=== PATIENT | male | born 1990 | race Caucasian/White ===

== ENCOUNTER 2016-07-05 00:41 | Emergency (ER) | payer OTHER ==
[~2016-07-05] VITALS: Ht 170.2 cm; Wt 92.4 kg
[~2016-07-05 00:41] MED LIST: IMTUNK; REVIEWED; TRVHP PO
[2016-07-05 00:46] VITALS: TEMP 36.9; Ht 170.2 cm; Wt 92.4 kg
--- NOTE | 2016-07-05 01:14 | EMERGENCY ROOM VISIT NOTE ---
History Report prepared by Jose: Carmelina Hart Under the Supervision of: Dr. Jolene Vergara D.O. First contact with patient: 00:54 Chief Complaint: MENTAL HEALTH EVALUATION Stated Complaint: [facility] History of Present Illness The patient is a 26 year old male who presents to the Emergency Room with complaints of suicidal attempt occurring [employer]. The patient states that tonight he wanted to kill himself and states he was going to drive off the road to attempt suicide. The patient states that he drove here tonight after drinking "too much alcohol." The patient states that he has suffered from depression throughout his life and also tried to commit suicide before by hanging himself a year and a half ago after being . The patient states that after his attempt he did not receive psychiatric treatment. The patient states that his thoughts of attempting suicide occurred tonight after due to several aspects of his life changing over the last year an a half including his divorce, feeling disconnected with his children and his girlfriend breaking up with him 2 days ago. The patient states that he had been dating his girlfriend for the past 7 months and that she was the best thing that ever happened to him. The patient states the he has seen a psychiatrist in the past but has never been treated at an [facility]. The patient denies sustaining any injuries tonight or taking any medications tonight. Source of History: patient Onset: [employer] Position: other (global) Note: Associated symptoms: suicidal ideation Patient denies sustaining any injuries. Review of Systems See HPI for pertinent positives & negatives. A total of 10 systems reviewed and were otherwise negative. Past Medical & Surgical Medical Problems: (1) Depression Family History No pertinent family history stated. Social History Smoking Status: Current Every Day Smoker Marital Status: Housing Status: lives alone Occupation Status: employed Current/Historical Medications No Active Prescriptions or Reported Meds Allergies Coded Allergies: No Known Allergies (Unverified , 07/05/16) Physical Exam Vital Signs Date Time Temp Pulse Resp B/P Pulse Ox O2 Delivery O2 Flow Rate FiO2 07/05/16 07:05 66 18 153/91 98 Room Air 07/05/16 04:45 65 18 147/84 100 Room Air 07/05/16 02:47 63 16 114/78 99 Room Air 07/05/16 00:46 36.9 83 20 130/83 97 Room Air Physical Exam General: Smells of alcohol and appears depressed. HEENT: Head - normocephalic and atraumatic Pupils are equal, round, and reactive to light. Extraocular eye muscles are intact, and sclera are anicteric. Nose - moist nasal mucosa without discharge. Mouth - moist buccal mucosa. Oropharynx is nonerythematous and there is no tonsillar exudate or edema noted. Neck: Supple; no JVD, nuchal rigidity, cervical lymphadenopathy. Heart: Regular rate and rhythm. There is a normal S1 and S2 with no murmurs, clicks, or gallops appreciated. Lungs: Clear to auscultation bilaterally with no wheezes, rales, or rhonchi. Abdomen: Soft, completely nontender, nondistended, with good bowel sounds. There are no palpable pulsatile masses or hepatosplenomegaly. There is no guarding, rigidity, or rebound noted. Extremities: No evidence of cyanosis, clubbing, or edema. There are easily palpable peripheral pulses. Skin: warm and dry with good turgor and no rashes. Psych: flat affect and admits to suicidal ideation with a plan. Medical Decision & Procedures Laboratory Results 07/05/16 01:18 07/05/16 01:18 Test 07/05/16 01:18 07/05/16 05:03 Red Blood Count 5.15 M/uL (4.7-6.1) Mean Corpuscular Volume 82.1 fL (80-100) Mean Corpuscular Hemoglobin 29.9 pg (25-34) Mean Corpuscular Hemoglobin Concent 36.4 g/dl (32-36) RDW Standard Deviation 36.0 fL (36.4-46.3) RDW Coefficient of Variation 11.9 % (11.5-14.5) Mean Platelet Volume 8.9 fL (7.4-10.4) Anion Gap 11.0 mmol/L (3-11) Est Creatinine Clear Calc Drug Dose 167.0 ml/min Estimated GFR () 148.2 Estimated GFR (Non- 127.8 BUN/Creatinine Ratio 16.1 (10-20) Calcium Level 8.6 mg/dl (8.5-10.1) Total Bilirubin 0.5 mg/dl (0.2-1) Direct Bilirubin < 0.1 mg/dl (0-0.2) Aspartate Amino Transf (AST/SGOT) 40 U/L (15-37) Alanine Aminotransferase (ALT/SGPT) 73 U/L (12-78) Alkaline Phosphatase 90 U/L (45-117) Total Protein 8.0 gm/dl (6.4-8.2) Albumin 3.8 gm/dl (3.4-5.0) Thyroid Stimulating Hormone (TSH) 2.410 uIu/ml (0.300-4.500) Salicylates Level < 1.7 mg/dl (2.8-20) Acetaminophen Level < 2 ug/ml (10-30) Ethyl Alcohol mg/dL 14.0 mg/dl (0-3) Urine Opiates Screen NEG (NEG) Urine Methadone, Qualitative NEG (NEG) Urine Barbiturates NEG (NEG) Urine Phencyclidine (PCP) Level NEG (NEG) Ur Amphetamine/Methamphetamine NEG (NEG) MDMA (Ecstasy) Screen NEG (NEG) Urine Benzodiazepines Screen NEG (NEG) Urine Cocaine Metabolite NEG (NEG) Urine Marijuana (THC) NEG (NEG) Laboratory results per my review. ED Course 0100: Past medical records reviewed. The patient was evaluated in room A8. A complete history and physical exam was performed. Labs were drawn as above. 0200: The patient was felt to be medically cleared. [facility] is evaluating the patient. 0327: I discussed the case with [facility] and the patient is willing to sign himself in voluntarily. 0410: I reevaluated the patient and he was resting comfortably. I informed him that a bed search is occurring currently. 0542: I reevaluated the patient and he was awake and still voluntary and currently waiting to hear back from [facility] regarding admission. 0638: [facility] is reviewing the patient's information to determine admission. 0749: I discussed the case with the E[facility] from referral and assessment at the [facility]. They will accept the patient. Staff for [facility] will arrange for transfer. Medical Decision The patient is a 26 year old male who presents to the ED with suicidal ideation. Differential diagnosis includes mood disorder, suicidal attempt, alcohol intoxication, and depression. Labs: EtOH 14 No leukocytosis stable H&H Normal renal function glucose 105 LFTs normal TSH normal Acetaminophen and Tylenol negative. Urine tox screen was negative. This is a 26-year-old male patient who has had increased depression and suicidal ideation. Tonight he had plan to kill himself by crashing his car. The patient does admit to some alcohol use. He does have a history of depression and a previous suicide attempt by hanging approximately 18 months ago. He did not seek treatment after that episode. He is willing to admit himself voluntarily. He has been accepted the [facility]. Impression Primary Impression: Suicidal ideation Additional Impression: Alcohol intoxication Scribe Attestation The scribe's documentation has been prepared under my direction and personally reviewed by me in its entirety. I confirm that the note above accurately reflects all work, treatment, procedures, and medical decision making performed by me. Departure Information Dispostion Mental Health Acute Care Prescriptions No Active Prescriptions or Reported Meds Referrals No Doctor, Assigned (PCP)
[2016-07-05 01:36] LABS: HEMATOCRIT 42.3 % (42-52); MEAN CELL VOLUME 82.1 fL (80-100); MEAN CORPUSCULAR HEMOGLOBIN 29.9 pg (25-34); MEAN CORPUSCULAR HGB CONC 36.4 g/dl (32-36); MEAN PLATELET VOLUME 8.9 fL (7.4-10.4); PLATELET COUNT 220 K/uL (130-400); RED BLOOD COUNT 5.15 M/uL (4.7-6.1); WHITE BLOOD COUNT 6.65 K/uL (4.8-10.8)
[2016-07-05 01:56] LABS: ALT/SGPT 73 U/L (12-78); AST/SGOT 40 U/L (15-37); BLOOD UREA NITROGEN 12 mg/dl (7-18); BUN/CREATININE RATIO 16.1 (10-20); CALCIUM 8.6 mg/dl (8.5-10.1); CARBON DIOXIDE 23 mmol/L (21-32); CHLORIDE 107 mmol/L (98-107); CREATININE 0.72 mg/dl (0.60-1.40); GLUCOSE 105 mg/dl (70-99); POTASSIUM 3.6 mmol/L (3.5-5.1); SODIUM 141 mmol/L (136-145)
[2016-07-05 02:07] LABS: ALKALINE PHOSPHATASE 90 U/L (45-117)
[2016-07-05 02:21] LABS: ACETAMINOPHEN < 2 ug/ml (10-30)
[2016-07-05 05:47] LABS: BENZODIAZEPINE, URINE NEG (NEG); COCAINE,URINE NEG (NEG); PHENCYCLIDINE, URINE NEG (NEG)
[2016-07-05] MEDS ORDERED: METOLAZONE 2.5 MG TAB PO ONE (08:45)
[2016-07-05] MEDS ORDERED: DIVALPROEX 500 MG EXTENDED RELEASE TAB PO ONE (08:45)
[2016-07-05] MEDS ORDERED: FUROSEMIDE 40 MG TAB PO ONE (08:45)
[2016-07-05] MEDS ORDERED: RIVAROXABAN 10 MG TAB PO ONE (09:00)
[2016-07-05 09:28] VITALS: BP 148/81; PULSE 72; O2SAT 98
== END 2016-07-05 09:28 ==
LOC: C.EDB 00:43 → C.EDA 09:28
DX: R45.851 Suicidal ideations (principal); F10.129 Alcohol abuse with intoxication, unspecified; Y90.0 Blood alcohol level of less than 20 mg/100 ml; F17.200 Nicotine dependence, unspecified, uncomplicated

== ENCOUNTER 2016-10-22 20:18 | Emergency (ER) | payer OTHER ==
[~2016-10-22] VITALS: Ht 172.7 cm; Wt 89.3 kg
[2016-10-22 20:21] VITALS: TEMP 36.5; Ht 172.7 cm; Wt 89.3 kg
--- NOTE | 2016-10-22 21:42 | DIAGNOSTIC IMAGING REPORT ---
LEFT KNEE 3 VIEWS HISTORY: left knee injury COMPARISON: None. FINDINGS: There is no fracture or dislocation. Soft tissues are unremarkable. No radiopaque foreign bodies. IMPRESSION: No fractures. Electronically signed by: Dat Patel M.D. 10/22/2016 9:40 PM Dictated Date/Time: 10/22/2016 9:39 PM
--- NOTE | 2016-10-22 22:08 | EMERGENCY ROOM VISIT NOTE ---
ED Visit Note First contact with patient: 20:24 CHIEF COMPLAINT: knee pain HISTORY OF PRESENT ILLNESS: This 26-year-old male patient presents to the emergency department ambulatory complaining of left knee pain. The patient states that yesterday, he tripped over a toy and struck the left knee on his bed. He states that today, the knee gave out on him and he again struck the median off of something. He rates his discomfort an 8/10. He denies any swelling or bruising. He has not taken any medication for pain. He is able to walk on the knee without difficulty. No previous injuries to this knee. No ankle, foot or hip pain. REVIEW OF SYSTEMS: A 6 system review of systems was completed with positives and pertinent negatives listed in the HPI. ALLERGIES: No known drug allergies MEDICATIONS: Sky Espinozaal PMH: No pertinent past medical history. SOCIAL HISTORY: The patient lives locally with family. Nonsmoker, admits to occasional alcohol use. PHYSICAL EXAM: Vital Signs: Reviewed Nurse's notes, vital signs stable. GENERAL : This is a 26-year-old male, no acute distress, but appears in pain, well- developed, well-nourished. MENTAL STATUS: Alert, oriented to person place and time, and cooperative. MUSCULOSKELETAL: The left knee is not swollen. There is no ecchymosis. There is no joint effusion present. The patient is tender along the medial aspect of the patella. There is no joint line tenderness. The patella does not subluxate. Range of motion is full. Strength of the quads and hamstrings is 5/5. Gustavo's is negative. Camden's and Anterior Drawer tests are negative. There is no laxity with varus and valgus stressing. The foot and toes are warm and well-perfused. Dorsalis pedis pulse 2+. Sensation to pain and light touch is intact. Capillary refill less than 2 seconds. RADIOGRAPHIC FINDINGS: LEFT KNEE 3 VIEWS HISTORY: left knee injury COMPARISON: None. FINDINGS: There is no fracture or dislocation. Soft tissues are unremarkable. No radiopaque foreign bodies. IMPRESSION: No fractures. EMERGENCY DEPARTMENT COURSE: I examined the patient. X-rays of the left knee were reviewed by myself and read by radiology and reveal no acute findings. The patient is able to walk without difficulty. He was instructed to follow-up with his primary care provider or orthopedics if he has persistent pain in the knee. He verbalized understanding of my assessment and treatment plan. The patient was discharged home in good condition. DIAGNOSIS: Knee contusion Problem List Medical Problems: (1) Depression Status: Chronic Current/Historical Medications Scheduled Emtricitabine/Temofovir (Truvada 200/300MG), 1 TAB PO DAILY Lamotrigine (Lamictal), 100 MG PO QAM Allergies Coded Allergies: No Known Allergies (Unverified , 10/22/16) Vital Signs Date Time Temp Pulse Resp B/P Pulse Ox O2 Delivery O2 Flow Rate FiO2 10/22/16 22:21 84 16 148/84 94 10/22/16 20:21 36.5 72 16 130/82 97 Room Air Departure Information Impression Primary Impression: Contusion of left knee Dispostion Home / Self-Care Condition GOOD Referrals Deep Miranda III, M.D. (PCP) Deep Alva, DO Patient Instructions [facility] Additional Instructions You have been treated in the Emergency Department for Knee Pain. For pain control, you can use the following [id number] medicines (if >12 yo): - Regular strength (325mg/tab) Tylenol (acetaminophen) 2 tabs every 4-6 hours as needed. Do not exceed 12 tablets in a 24 hour period. Avoid taking more than 4 grams (4000 mg) of Tylenol per day. This includes any other sources of acetaminophen you may take on a regular basis. - Regular strength (200 mg/tab) Advil (ibuprofen) 1-2 tabs every 4-6 hours as needed. Do not exceed a dose of 3200 mg per day. If this is a recent injury (<24 hrs), ice can be applied to the area of pain for the first 3 days to help decrease pain and inflammation. Ice massages can be performed by freezing water in a paper cup, peeling back the cup to expose the ice and then massaging over the affected area. Wear the Priyank wrap as needed for pain. Follow-up with your primary care provider or orthopedics if you have persistent pain in the knee in 5-6 days. Return to the Emergency Department if your current symptoms worsen despite treatment course outlined above. Problem Qualifiers Primary Impression: Contusion of left knee Encounter type: initial encounter Qualified Codes: S80.02XA - Contusion of left knee, initial encounter
[2016-10-22 22:21] VITALS: BP 148/84; PULSE 84; O2SAT 94
== END 2016-10-22 22:22 | disposition home or self-care (01) ==
LOC: C.EDB 20:20 → C.EDD 22:22
DX: S80.02XA Contusion of left knee, initial encounter (principal); W01.0XXA Fall on same level from slipping, tripping and stumbling without subsequent striking against object, initial encounter; F32.9 Major depressive disorder, single episode, unspecified; Z79.899 Other long term (current) drug therapy

== ENCOUNTER 2017-01-09 17:23 | Emergency (ER) | payer OTHER ==
[~2017-01-09] VITALS: Ht 170.2 cm; Wt 93.0 kg
[2017-01-09 17:29] VITALS: TEMP 36.7; Ht 170.2 cm; Wt 93.0 kg
[2017-01-09] MEDS ORDERED: KETOROLAC TROMETHAMINE 30 MG/ML VIAL IV STA (17:37)
[2017-01-09] MEDS ORDERED: ONDANSETRON INJ 2 MG/ML 2 ML VIAL IV STA (17:37)
[2017-01-09] MEDS ORDERED: SODIUM CHLORIDE 0.9% 500ML 500 ML IV STA (17:37)
[2017-01-09] MEDS ORDERED: SODIUM CHLORIDE 0.9% 1000ML 1,000 ML IV STA (17:37)
[2017-01-09] MEDS ORDERED: OPTIRAY 320 IV PRN (18:15)
[2017-01-09 18:19] LABS: HEMATOCRIT 41.2 % (42-52); MEAN CELL VOLUME 83.7 fL (80-100); MEAN CORPUSCULAR HEMOGLOBIN 29.1 pg (25-34); MEAN CORPUSCULAR HGB CONC 34.7 g/dl (32-36); MEAN PLATELET VOLUME 8.7 fL (7.4-10.4); PLATELET COUNT 244 K/uL (130-400); RED BLOOD COUNT 4.92 M/uL (4.7-6.1); WHITE BLOOD COUNT 7.52 K/uL (4.8-10.8)
[2017-01-09 18:46] LABS: BUN/CREATININE RATIO 20.8 (10-20); CREATININE 0.79 mg/dl (0.60-1.40); POTASSIUM 3.8 mmol/L (3.5-5.1)
--- NOTE | 2017-01-09 18:53 | DIAGNOSTIC IMAGING REPORT ---
RIGHT KNEE 1 OR 2 VIEWS ROUTINE CLINICAL HISTORY: Right knee pain status post trauma COMPARISON: None. DISCUSSION: No fractures or dislocations are visualized. There is no radiographic evidence of a joint effusion. IMPRESSION: No fractures or dislocations identified. Electronically signed by: Ryan Olea M.D. 01/09/2017 6:51 PM Dictated Date/Time: 01/09/2017 6:50 PM
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
[2017-01-09] MEDS ORDERED: IBUPROFEN 600 MG TAB PO STA (20:27)
[2017-01-09 21:04] VITALS: BP 141/87; PULSE 57; O2SAT 99
== END 2017-01-09 20:48 | disposition home or self-care (01) ==
LOC: EDBD 17:23 → C.EDB 17:24
DX: M54.5 Low back pain (principal); S16.1XXA Strain of muscle, fascia and tendon at neck level, initial encounter; S40.012A Contusion of left shoulder, initial encounter; S80.01XA Contusion of right knee, initial encounter; R10.10 Upper abdominal pain, unspecified; V49.40XA Driver injured in collision with unspecified motor vehicles in traffic accident, initial encounter; Z87.891 Personal history of nicotine dependence

== ENCOUNTER 2017-01-11 16:06 | Emergency (ER) | payer OTHER ==
[~2017-01-11] VITALS: Ht 170.2 cm; Wt 91.1 kg
[2017-01-11 16:15] VITALS: BP 136/75; TEMP 37.2; Ht 170.2 cm; Wt 91.1 kg
[2017-01-11] MEDS ORDERED: CYCL10TA6 PO (16:43)
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
[2017-01-11 16:56] VITALS: PULSE 101; O2SAT 97
[2017-01-11] MEDS ORDERED: PRAZ1CAP10 PO (16:57)
[2017-01-11] MEDS ORDERED: FLUO40CA8 PO (16:57)
[2017-01-11] MEDS ORDERED: [UNRECOGNIZED DRUG - CODE] PO (16:57)
[2017-01-11] MEDS ORDERED: LAMO100T16 PO ×2 (16:57→21:06)
[2017-01-11] MEDS ORDERED: TRVHP PO (21:06)
== END 2017-01-11 16:57 | disposition home or self-care (01) ==
LOC: C.EDB 16:08 → C.EDD 16:57
DX: M25.512 Pain in left shoulder (principal); M54.9 Dorsalgia, unspecified; V89.2XXA Person injured in unspecified motor-vehicle accident, traffic, initial encounter; B19.10 Unspecified viral hepatitis B without hepatic coma; F32.9 Major depressive disorder, single episode, unspecified; F17.200 Nicotine dependence, unspecified, uncomplicated; Z87.828 Personal history of other (healed) physical injury and trauma; Z79.899 Other long term (current) drug therapy

== ENCOUNTER 2017-02-07 07:03 | Inpatient (IN) | payer OTHER ==
[~2017-02-07] VITALS: Ht 170.2 cm; Wt 91.5 kg
[~2017-02-07 07:03] MED LIST changes: +FLUO40CA8 PO; -IMTUNK; +LAMO100T16 PO; +PRAZ1CAP10 PO; -REVIEWED; +[UNRECOGNIZED DRUG - CODE] PO
[2017-02-07] MEDS ORDERED: SODIUM CHLORIDE 0.9% 1000ML 1,000 ML IV STA (07:10)
[2017-02-07] MEDS ORDERED: SODIUM CHLORIDE 0.9% 1000ML 1,000 ML IV ONE (07:10)
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
[2017-02-07 07:30] LABS: BASO % 0.6 %; BASO ABS # 0.04 K/uL (0-0.2); COMPLETE YES; EOS % 3.3 %; HEMATOCRIT 45.8 % (42-52); IG% 0.1 %; LYMPH % 36.5 %; LYMPH ABS # 2.62 K/uL (1.2-3.4); MEAN CELL VOLUME 83.9 fL (80-100); MEAN CORPUSCULAR HEMOGLOBIN 29.3 pg (25-34); MEAN CORPUSCULAR HGB CONC 34.9 g/dl (32-36); MEAN PLATELET VOLUME 8.6 fL (7.4-10.4); MONO % 7.7 %; NEUT % 51.8 %; PLATELET COUNT 241 K/uL (130-400); RED BLOOD COUNT 5.46 M/uL (4.7-6.1); WHITE BLOOD COUNT 7.17 K/uL (4.8-10.8)
[2017-02-07 07:45] LABS: INR 0.9 (0.9-1.1); PARTIAL THROMBOPLASTIN RATIO 1.1; PROTHROMBIN TIME (PATIENT) 9.9 SECONDS (9.0-12.0)
[2017-02-07 07:54] LABS: ACETAMINOPHEN < 2 ug/ml (10-30)
[2017-02-07 07:56] LABS: ALKALINE PHOSPHATASE 90 U/L (45-117); ALT/SGPT 57 U/L (12-78); BLOOD UREA NITROGEN 14 mg/dl (7-18); BUN/CREATININE RATIO 16.1 (10-20); CARBON DIOXIDE 27 mmol/L (21-32); CHLORIDE 106 mmol/L (98-107); CREATININE 0.88 mg/dl (0.60-1.40); GLUCOSE 115 mg/dl (70-99)
[2017-02-07 08:02] LABS: POTASSIUM 3.6 mmol/L (3.5-5.1); SODIUM 140 mmol/L (136-145)
--- NOTE | 2017-02-07 08:04 | DIAGNOSTIC IMAGING REPORT ---
CHEST ONE VIEW PORTABLE HISTORY: Atypical CHEST PAIN COMPARISON: Chest 09/25/2009. FINDINGS: The lungs are clear. Cardiac silhouette is normal in size. No pleural effusions. No pneumothorax. IMPRESSION: No acute process. Electronically signed by: Dat Patel M.D. 02/07/2017 8:03 AM Dictated Date/Time: 02/07/2017 8:02 AM
[2017-02-07 08:07] LABS: AST/SGOT 29 U/L (15-37)
[2017-02-07] MEDS ORDERED: ONDANSETRON INJ 2 MG/ML 2 ML VIAL IV PRN (08:45)
[2017-02-07 09:00] VITALS: O2SAT 99; Ht 170.2 cm; Wt 91.5 kg
[2017-02-07] MEDS ORDERED: LORAZEPAM 2 MG/ML 1 ML VIAL IV PRN ×2 (09:00→21:00)
[2017-02-07] MEDS ORDERED: LEVALBUTEROL 0.63MG/3 ML NEB INH PRN (09:15)
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
[2017-02-07 10:00] VITALS: BP 155/105; PULSE 122; TEMP 36.8; O2SAT 98
[2017-02-07] MEDS: SODIUM CHLORIDE 0.9% 1000ML 1,000 ML IV SCH ×2 (10:41→20:47)
[2017-02-07 11:40] LABS: BENZODIAZEPINE, URINE NEG (NEG); COCAINE,URINE NEG (NEG); PHENCYCLIDINE, URINE NEG (NEG)
[2017-02-07] MEDS: EMTRICITABINE/TENOFOVIR TAB PO SCH (11:44)
[2017-02-07 12:00] VITALS: BP 144/95; PULSE 107; TEMP 37; O2SAT 96
--- NOTE | 2017-02-07 12:49 | Psychiatric Consultation ---
Psychiatric Consultation Date of Service: Feb 07, 2017. Went to see pt, however he is unable to participate in the assessment, not Able to answer question. Starting off with mouth gaped open and gets easily agitated when addressed with sign writer hand, liking responding to internal stimuli from OD of Benadryl. Pt did not appear to be oriented. reviewed chart. will aim to see pt one more cleared and able to participate in assessment
[2017-02-07 15:01] VITALS: BP 157/106; PULSE 94; TEMP 37.4; O2SAT 98
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
[2017-02-07] MEDS: LORAZEPAM 2 MG/ML 1 ML VIAL IV PRN (18:41)
[2017-02-07 19:14] VITALS: BP 149/55; PULSE 98; TEMP 36.9; O2SAT 99
[2017-02-07] MEDS: PRAZOSIN HCL 1 MG CAP PO SCH (20:47)
[2017-02-07 22:52] VITALS: BP 131/88; PULSE 67; TEMP 37.1; O2SAT 98
[2017-02-08] VITALS (7 sets, daily range): BP systolic 124–139; BP diastolic 70–86; PULSE 75–113; TEMP 36.3–37; O2SAT 95–100
[2017-02-08] MEDS: SODIUM CHLORIDE 0.9% 1000ML 1,000 ML IV SCH ×2 (05:16→08:20)
[2017-02-08 06:13] LABS: BASO % 0.4 %; BASO ABS # 0.04 K/uL (0-0.2); COMPLETE YES; HEMATOCRIT 42.4 % (42-52); IG% 0.3 %; LYMPH % 27.2 %; LYMPH ABS # 2.42 K/uL (1.2-3.4); MEAN CELL VOLUME 86.5 fL (80-100); MEAN CORPUSCULAR HGB CONC 34.7 g/dl (32-36); MEAN PLATELET VOLUME 8.6 fL (7.4-10.4); MONO % 9.9 %; NEUT % 60.2 %; PLATELET COUNT 200 K/uL (130-400); WHITE BLOOD COUNT 8.91 K/uL (4.8-10.8)
[2017-02-08 06:47] LABS: BUN/CREATININE RATIO 15.6 (10-20); CALCIUM 8.7 mg/dl (8.5-10.1); CREATININE 0.96 mg/dl (0.60-1.40); POTASSIUM 3.9 mmol/L (3.5-5.1)
[2017-02-08] MEDS: EMTRICITABINE/TENOFOVIR TAB PO SCH (08:19)
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
[2017-02-08] MEDS: LORAZEPAM 2 MG/ML 1 ML VIAL IV PRN (10:25)
[2017-02-08] MEDS: ACETAMINOPHEN 325 MG TAB PO PRN (10:26)
[2017-02-08] MEDS ORDERED: MELO7.5T5 PO (10:40)
[2017-02-08] MEDS ORDERED: NURSING VERBAL MED ORDER ONE (10:45)
[2017-02-08] MEDS: MELOXICAM 7.5 MG TAB PO SCH (11:54)
[2017-02-08] MEDS: FLUOXETINE HCL 20 MG CAP PO SCH (11:55)
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
--- NOTE | 2017-02-08 14:52 | Infectious Disease Progress Nt ---
Progress Note Date of Service Feb 08, 2017. Subjective Pt evaluation today including: physical exam, chart review, lab review, review of studies, conversation w/ telesales consultant, review of inpatient medication list Patient not arousable after Ativan. Was apparently more alert earlier. remains afebrile. Psychiatry f/u reviewed. All Other Systems: Reviewed and Negative Medications Current Inpatient Medications Medications (Trade) Dose Ordered Sig/Brandee Route Start Time Stop Time Status Last Admin Dose Admin Sodium Chloride 1,000 ml @ 50 mls/hr Q20H IV 02/07/17 08:40 03/09/17 08:39 02/08/17 08:20 125 MLS/HR Acetaminophen (Tylenol Tab) 650 mg Q4H PRN PO 02/07/17 08:45 03/09/17 08:44 02/08/17 10:26 650 MG Ondansetron HCl (Zofran Inj) 4 mg Q6H PRN IV 02/07/17 08:45 03/09/17 08:44 02/07/17 12:42 4 MG Emtricitabine/ Tenofovir (Truvada 200-300mg Tab) 1 tab DAILY PO 02/07/17 09:00 03/09/17 08:59 02/08/17 08:19 1 TAB Prazosin HCl (Prazosin) 1 mg HS PO 02/07/17 21:00 03/09/17 20:59 02/07/17 20:47 1 MG Levalbuterol (Xopenex 0.63 Mg/ 3 Ml Neb) 0.63 mg Q6H PRN INH 02/07/17 09:15 03/09/17 09:14 Lorazepam (Ativan Inj) 1 mg Q3H PRN IV 02/07/17 18:31 03/09/17 18:30 02/08/17 10:25 1 MG Fluoxetine HCl (Prozac Cap) 40 mg DAILY PO 02/08/17 09:00 03/10/17 08:59 02/08/17 11:55 40 MG Lamotrigine (Lamictal Tab) 50 mg QAM PO 02/08/17 09:00 03/10/17 08:59 02/08/17 11:55 50 MG Lamotrigine (Lamictal Tab) 100 mg HS PO 02/08/17 21:00 03/10/17 20:59 Meloxicam (Mobic Tab) 15 mg QAM PO 02/08/17 11:00 03/10/17 10:59 02/08/17 11:54 15 MG Objective Vital Signs Date Time Temp Pulse Resp B/P (MAP) Pulse Ox O2 Delivery O2 Flow Rate FiO2 02/08/17 12:00 Room Air 02/08/17 11:24 36.6 75 18 132/84 (100) 100 Room Air 02/08/17 08:00 Room Air 02/08/17 07:06 36.4 77 18 138/85 (102) 100 Room Air 02/08/17 04:00 Room Air 02/08/17 02:49 36.6 80 16 125/70 (88) 98 Room Air 02/08/17 00:00 Room Air 02/07/17 22:52 37.1 67 16 131/88 (102) 98 Room Air 02/07/17 20:00 Room Air 02/07/17 19:14 36.9 98 18 149/55 (86) 99 Room Air 02/07/17 16:00 Room Air 02/07/17 15:01 37.4 94 18 157/106 (123) 98 Room Air Physical Exam General Appearance: WD/WN, no apparent distress Eyes: normal inspection, sclerae normal ENT: normal ENT inspection, pharynx normal Neck: supple, no adenopathy, trachea midline Respiratory/Chest: lungs clear, normal breath sounds, no respiratory distress Cardiovascular: regular rate, rhythm, no gallop, no murmur Abdomen: normal bowel sounds, non tender, soft, no organomegaly Extremities: non-tender, no calf tenderness Neurologic/Psychiatric: + pertinent finding (not arousable) Skin: normal color, no rash Lymphatic: no adenopathy Laboratory Results Last 24 Hours Test 02/07/17 18:42 02/08/17 05:36 White Blood Count 8.91 K/uL Red Blood Count 4.90 M/uL Hemoglobin 14.7 g/dL Hematocrit 42.4 % Mean Corpuscular Volume 86.5 fL Mean Corpuscular Hemoglobin 30.0 pg Mean Corpuscular Hemoglobin Concent 34.7 g/dl Platelet Count 200 K/uL Mean Platelet Volume 8.6 fL Neutrophils (%) (Auto) 60.2 % Lymphocytes (%) (Auto) 27.2 % Monocytes (%) (Auto) 9.9 % Eosinophils (%) (Auto) 2.0 % Basophils (%) (Auto) 0.4 % Neutrophils # (Auto) 5.36 K/uL Lymphocytes # (Auto) 2.42 K/uL Monocytes # (Auto) 0.88 K/uL Eosinophils # (Auto) 0.18 K/uL Basophils # (Auto) 0.04 K/uL RDW Standard Deviation 39.6 fL RDW Coefficient of Variation 12.3 % Immature Granulocyte % (Auto) 0.3 % Immature Granulocyte # (Auto) 0.03 K/uL Sodium Level 140 mmol/L Potassium Level 3.9 mmol/L Chloride Level 108 mmol/L Carbon Dioxide Level 28 mmol/L Anion Gap 4.0 mmol/L Blood Urea Nitrogen 15 mg/dl Creatinine 0.96 mg/dl Est Creatinine Clear Calc Drug Dose 122.1 ml/min Estimated GFR () 124.2 Estimated GFR (Non- 107.1 BUN/Creatinine Ratio 15.6 Random Glucose 82 mg/dl Calcium Level 8.7 mg/dl Assessment and Plan 19-year-old male with chronic hepatitis-B infection, compliance with his therapy unknown since no follow-up for 1 year. Truvada has been restarted and Hepatitis B viral load is pending. Will follow.
[2017-02-08] MEDS: PRAZOSIN HCL 1 MG CAP PO SCH (20:15)
[2017-02-09 03:19] VITALS: BP 119/78; PULSE 82; TEMP 36.7; O2SAT 99
[2017-02-09] MEDS: ACETAMINOPHEN 325 MG TAB PO PRN (03:52)
[2017-02-09] MEDS: SODIUM CHLORIDE 0.9% 1000ML 1,000 ML IV SCH (03:53)
[2017-02-09 07:13] VITALS: BP 121/81; PULSE 92; TEMP 37.1; O2SAT 98
[2017-02-09 07:24] LABS: BUN/CREATININE RATIO 15.1 (10-20); CALCIUM 8.6 mg/dl (8.5-10.1); CREATININE 0.87 mg/dl (0.60-1.40)
[2017-02-09] MEDS: MELOXICAM 7.5 MG TAB PO SCH (08:47)
[2017-02-09] MEDS: EMTRICITABINE/TENOFOVIR TAB PO SCH (08:47)
[2017-02-09] MEDS: FLUOXETINE HCL 20 MG CAP PO SCH (08:47)
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
[2017-02-09 12:08] VITALS: BP 138/84; PULSE 93; TEMP 36.6; O2SAT 99
[2017-02-09 14:46] VITALS: BP 148/81; PULSE 104; TEMP 37; O2SAT 97
[2017-02-09 15:03] VITALS: BP 148/81; PULSE 104; TEMP 37; O2SAT 97
[2017-02-10 18:41] LABS: HEP B QUANT <20 IU/mL (<20); HEP B QUANT LOG IU/ML <1.30 Log IU/mL (<1.30)
== END 2017-02-09 15:26 | DRG 917 ==
LOC: EDBD 07:03 → C.EDA 07:06 → C.2T 08:48 → EDBEDREQ 08:57 → ENRESERV 09:06 → EDBEDREQ 09:11
PROVIDERS: ADMIT Internal Medicine; ATTEND Internal Medicine
DX: T45.0X2A Poisoning by antiallergic and antiemetic drugs, intentional self-harm, initial encounter (principal); G92 Toxic encephalopathy; B18.1 Chronic viral hepatitis B without delta-agent; F12.10 Cannabis abuse, uncomplicated; F17.200 Nicotine dependence, unspecified, uncomplicated; Y92.009 Unspecified place in unspecified non-institutional (private) residence as the place of occurrence of the external cause; F31.9 Bipolar disorder, unspecified; J45.909 Unspecified asthma, uncomplicated; I10 Essential (primary) hypertension; R00.0 Tachycardia, unspecified

== ENCOUNTER 2017-02-09 15:45 | Inpatient (IN) | payer OTHER ==
[~2017-02-09] VITALS: Ht 171.5 cm; Wt 89.3 kg
[~2017-02-09 15:45] MED LIST changes: +MELO7.5T5 PO
[2017-02-09 16:05] VITALS: BP 129/87; PULSE 101; TEMP 37; Ht 171.5 cm; Wt 89.3 kg
[2017-02-09] MEDS ORDERED: SODIUM CHLORIDE 0.65% NA SOLN 45 ML (OCEAN) PRN (16:15)
[2017-02-09] MEDS ORDERED: ACETAMINOPHEN 325 MG TAB PO PRN (16:15)
[2017-02-09] MEDS ORDERED: ALUMINUM/MAGNESIUM SUSP 30 ML UDC PO PRN (16:15)
[2017-02-09] MEDS ORDERED: MAGNESIUM HYDROXIDE SUSP 30 ML UDC PO PRN (16:15)
[2017-02-09] MEDS ORDERED: BISMUTH SUBSALICYLATE PER ML OMNICELL CHARGE PO PRN (16:15)
[2017-02-09] MEDS ORDERED: hydrOXYzine HCL 25 MG TAB PO PRN ×2 (16:15)
[2017-02-09] MEDS: PRAZOSIN HCL 1 MG CAP PO SCH (21:19)
[2017-02-10 07:01] VITALS: BP_SYST 117; BP_SYST 119; BP_DIAS 72; BP_DIAS 76; PULSE 77; PULSE 78; TEMP 36.7
[2017-02-10] MEDS: MELOXICAM 7.5 MG TAB PO SCH (08:24)
[2017-02-10] MEDS: FLUOXETINE HCL 20 MG CAP PO SCH (08:24)
[2017-02-10] MEDS: EMTRICITABINE/TENOFOVIR TAB PO SCH (08:25)
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
--- NOTE | 2017-02-10 15:22 | Infectious Disease Progress Nt ---
Progress Note Date of Service Feb 10, 2017. Subjective Pt evaluation today including: conversation w/ patient, physical exam, chart review, lab review, review of studies, conversation w/ outbound sales consultant, review of inpatient medication list Patient now on psych unit feeling better, less depressed. No new specific complaints. Patient had minimal viral load on most recent determination. All Other Systems: Reviewed and Negative Medications Reported Home Medications Medications Dose Route/Sig Max Daily Dose Days Date Category Mobic (Meloxicam) 7.5 Mg Tab 02/08/17 Reported Cvs Allergy (Diphenhydramine HCl) 25 Mg Cap 50 Mg PO HS 01/11/17 Reported Prazosin (Prazosin HCl) 1 Mg Cap 1 Mg PO HS 01/11/17 Reported Lamictal (Lamotrigine) 100 Mg Tab 50 Mg PO QAM 01/11/17 Reported Prozac (Fluoxetine HCl) 40 Mg Cap 40 Mg PO DAILY 01/11/17 Reported Lamictal (Lamotrigine) 100 Mg Tab 100 Mg PO HS 10/22/16 Reported Truvada 200/300MG (Emtricitabine/Tenofovir) Tab 1 Tab PO DAILY 10/22/16 Reported Objective Vital Signs Date Time Temp Pulse Resp B/P (MAP) Pulse Ox O2 Delivery O2 Flow Rate FiO2 02/10/17 07:01 36.7 78 16 117/72 77 119/76 02/09/17 16:05 37.0 101 18 129/87 Physical Exam General Appearance: WD/WN, no apparent distress Eyes: normal inspection, sclerae normal ENT: normal ENT inspection, pharynx normal Neck: supple, no adenopathy, thyroid normal, trachea midline Respiratory/Chest: chest non-tender, lungs clear, normal breath sounds, no respiratory distress Cardiovascular: regular rate, rhythm, no gallop, no murmur Abdomen: normal bowel sounds, non tender, soft, no organomegaly Extremities: non-tender, no calf tenderness Neurologic/Psychiatric: alert, oriented x 3 Skin: normal color, warm/dry, no rash Lymphatic: no adenopathy Assessment and Plan Patient with chronic hepatitis B infection with good response to Truvada therapy. Patient should continue on this medicine indefinitely. Monitor hearing and subsequent viral load studies can be done as an outpatient.
[2017-02-10] MEDS: PRAZOSIN HCL 1 MG CAP PO SCH (21:10)
[2017-02-11 06:57] VITALS: BP_SYST 122; BP_SYST 123; BP_DIAS 72; BP_DIAS 76; PULSE 71; PULSE 90; TEMP 36.4
[2017-02-11] MEDS: FLUOXETINE HCL 20 MG CAP PO SCH (09:11)
[2017-02-11] MEDS: EMTRICITABINE/TENOFOVIR TAB PO SCH (09:11)
[2017-02-11] MEDS: MELOXICAM 7.5 MG TAB PO SCH (09:11)
--- NOTE | 2017-02-11 10:09 | Psychiatric Progress Notes ---
Progress Note Date of Service Feb 11, 2017. Interval History 27 y/o male with a history of bipolar disorder per his report, substance abuse, and multiple suicide attempts who presented after a suicide attempt by overdose on Benadryl, resulting in delirium and a 3 day medical admission prior to being medically cleared and transferred to the [facility]. He is reporting improved mood, stating his suicide attempt was "a stupid decision" influenced by opiate abuse and feeling he had no support, and is focused on discharge. Has a family meeting with his ex-girlfriend tomorrow, and doesn't want parents involved, but they are very concerned about him. Has providers at [facility] and is declining substance abuse treatment. Chief Complaint "I'm so much better than I was on Wednesday.". Subjective Patient was seen & assessed interval progress reviewed with Treatment Team. 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 He will have a meeting with his ex GF this afternoon, who he now describes as his best friend. He will be living with her after discharge. His parents have also visited, and will be holding his meds for him , getting only 1 week's supply of meds at a time. He talks about his 2 children , ages 2 and 6, and wants to stay alive for them and to be a better provider. He feels that he is "in a better place" now. He rates his mood 8/10 and denies SI. He also wants to stay away from substances and is willing to attend . He has been working on his recovery book, having completed his life history. He is hoping to be discharged tomorrow so that he can go to his ex GF's family' s [facility] for a few days to de-stress. Review of Systems Constitutional: No fever, No chills, No sweats, No weight loss, No weakness, No fatigue, No problem reported ENT: No hearing loss, No unusual epistaxis, No nasal symptoms, No sore throat, No tinnitus, No dental problems, No trouble swallowing, No problem reported Respiratory: No cough, No sputum, No wheezing, No shortness of breath, No dyspnea on exertion, No dyspnea at rest, No hemoptysis, No problem reported Cardiovascular: No chest pain, No orthopnea, No PND, No edema, No claudication , No palpitations, No problem reported Abdomen: No pain, No nausea, No vomiting, No diarrhea, No constipation, No GI bleeding, No problem reported Musculoskeletal: No joint pain, No muscle pain, No swelling, No calf pain, No problem reported Neurologic: No memory loss, No paralysis, No weakness, No numbness/tingling, No vertigo, No balance problems, No problem reported Psychiatric: No depression symptoms, No anhedonism, No anxiety, No insomnia, No substance abuse, No problem reported Integumentary: No rash, No itch, No new/changing skin lesions, No color change , No bleeding, No problem reported Sleep Information Total Hours of Sleep: 6.00 Meal Information Percent of Breakfast Consumed: 100 Percent of Lunch Consumed: 100 Percent of Dinner Consumed: 100 Mental Status Exam During interview pt is: alert and oriented, cooperative Appearance: appropriately dressed, appropriately groomed Eye contact is: good Motor behavior is: steady gait & station, no abnormal motor movements Speech: normal in rate, rhythm & volume Affect: mood congruent, euthymic Mood is: other ("good") Thought process: goal directed, linear, logical, clear, coherent Thought content: reality based without delusions Suicidal thought are: denied Homicidal thoughts are: denied Hallucinations: denies auditory, denies visual Cognition: memory grossly intact, attention grossly intact, language grossly intact Intelligence estimated to be: average Insight: good Judgement: good Impression Adjusting well to the structure and support of the milieu. Now finding that he has support from his parents and GF, who will remain his friend. He is tolerating his meds saying that he feels better being back on them. he would like to be discharged tomorrow, but we do not want to quickly dismiss the severity of his depression that resulted in a suicide attempt. Will continue to review. Plan (1) Suicide attempt Delirium and altered mental status as a result of diphenhydramine overdose has resolved. Encourage patient to attend and participate in groups and therapy, work on healthy coping skills, and his discharge safety plan. Ensure no access to guns and involve his ex-girlfriend/friend Marisela, whom he lives with, in safety planning. Continue checks for safety here. (2) Depression Patient reports a history of bipolar disorder, will get outpatient records to confirm diagnosis. Resumed home medications, including lamotrigine 50 mg every morning and 100 mg daily at bedtime, fluoxetine 40 mg daily, and prazosin 1 mg daily at bedtime. Coordinate care with outpatient psychiatric physician press operator assistant and therapist at [facility]. 02/11 - Continue current meds - Meeting with ex GF this afternoon (3) Polysubstance dependence including opioid type drug, episodic abuse Agent admits to abusing opiate pain medications heavily for several weeks prior to his suicide attempt. He also has a history of heroin, cannabis, and previous pain medication abuse. He is declining recommendations for substance abuse treatment, and does not feel that he needs any help with getting sober. Coordinate care with his providers at [facility] to ensure they're comfortable managing him, as he does have significant substance abuse issues and has now made 3 suicide attempts. 02/11 - Recovery protocol (4) Hepatitis B carrier Continue Truvada, and consult infectious disease. Patient will need follow-up with Dr. Mark. Discharge / Aftercare Planning Primary Care Physician: Name: Dr. Miranda Therapist: Name: Allyssa Goel, [facility] Date of Appointment: Feb 15, 2017 Time of Appointment: 2:30 Visit Code E&M Code: 02567 Inventory Assets Strengths: good support system, willing for treatment Risk Factors Assessment Male: Yes : No /single/: Yes Higher / Fall in social status: No Health problems: Yes Mental Health Diagnoses: Yes Substance use disorders: Yes Previous attempt: Yes Family history of suicide: No Previous psychiatric stay: Yes Hopelessness: No Smoker: Yes Protective Factors Assessment Roman Catholic beliefs: No : No Responsible for young children: Yes Employed: No Stable relationships: No Supportive family: Yes Good rapport with provider: Yes Data Vital Signs Last 24 Hrs: Date Time Temp Pulse Resp B/P (MAP) Pulse Ox O2 Delivery O2 Flow Rate FiO2 02/11/17 06:57 36.4 71 16 123/76 90 122/72 Meds Administered Last 24 Hrs: Meds Administered (Past 24Hrs) Medications (Trade) Dose Ordered Sig/Brandee Route Start Time Stop Time Status Last Admin Dose Admin Emtricitabine/ Tenofovir (Truvada 200-300mg Tab) 1 tab DAILY PO 02/10/17 09:00 03/12/17 08:59 02/11/17 09:11 1 TAB Fluoxetine HCl (Prozac Cap) 40 mg DAILY PO 02/10/17 09:00 03/12/17 08:59 02/11/17 09:11 40 MG Lamotrigine (Lamictal Tab) 50 mg QAM PO 02/10/17 09:00 03/12/17 08:59 02/11/17 09:11 50 MG Lamotrigine (Lamictal Tab) 100 mg HS PO 02/09/17 22:00 03/11/17 21:59 02/10/17 21:09 100 MG Meloxicam (Mobic Tab) 7.5 mg DAILY PO 02/10/17 09:00 03/12/17 08:59 02/11/17 09:11 7.5 MG Prazosin HCl (Prazosin) 1 mg HS PO 02/09/17 22:00 03/11/17 21:59 02/10/17 21:10 1 MG Problem Qualifiers (1) Depression: Depression Type: unspecified Qualified Codes: F32.9 - Major depressive disorder, single episode, unspecified
[2017-02-11] MEDS: PRAZOSIN HCL 1 MG CAP PO SCH (20:56)
[2017-02-12 06:58] VITALS: BP_SYST 131; BP_DIAS 83; BP_DIAS 87; PULSE 76; PULSE 96; TEMP 36.4
[2017-02-12] MEDS: MELOXICAM 7.5 MG TAB PO SCH (08:18)
[2017-02-12] MEDS: EMTRICITABINE/TENOFOVIR TAB PO SCH (08:19)
[2017-02-12] MEDS: FLUOXETINE HCL 20 MG CAP PO SCH (08:19)
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
== END 2017-02-12 13:21 | disposition home or self-care (01) | DRG 881 ==
LOC: C.MHU 15:45
PROVIDERS: ADMIT Psychiatry & Neurology Psychiatry; ATTEND Psychiatry & Neurology Psychiatry
DX: F32.9 Major depressive disorder, single episode, unspecified (principal); F19.20 Other psychoactive substance dependence, uncomplicated; B18.1 Chronic viral hepatitis B without delta-agent; F11.10 Opioid abuse, uncomplicated; F12.90 Cannabis use, unspecified, uncomplicated; Z86.59 Personal history of other mental and behavioral disorders; Z91.5 Personal history of self-harm; Z79.899 Other long term (current) drug therapy; Z79.1 Long term (current) use of non-steroidal anti-inflammatories (NSAID)

== ENCOUNTER 2017-03-16 13:41 | Emergency (ER) | payer OTHER ==
[~2017-03-16] VITALS: Ht 175.3 cm; Wt 92.9 kg
[~2017-03-16 13:41] MED LIST changes: -[UNRECOGNIZED DRUG - CODE] PO
[2017-03-16 13:47] VITALS: TEMP 36.7; Ht 175.3 cm; Wt 92.9 kg
[2017-03-16] MEDS ORDERED: XYLOCAINE 1%/SOD BICARB 20 ML VIAL INFIL ONE (14:15)
[2017-03-16] MEDS ORDERED: BUPIVACAINE 0.5 % 5 MG/1 ML MPF 30ML VIAL INFIL ONE (14:15)
--- NOTE | 2017-03-16 14:28 | DIAGNOSTIC IMAGING REPORT ---
RIGHT FINGER(S) MIN 2 VIEWS ROUTINE CLINICAL HISTORY: r/o fx Right trauma COMPARISON: None. DISCUSSION: Fracture tuft distal phalanx right second finger. Soft tissue disruption locally. No evidence of dislocation. All remaining osseous structures are unremarkable. IMPRESSION: Fracture tuft distal phalanx. Localized soft tissue disruption. No evidence dislocation. The above report was generated using voice recognition software. It may contain grammatical, syntax or spelling errors. Electronically signed by: Han Cee M.D. 03/16/2017 2:26 PM Dictated Date/Time: 03/16/2017 2:25 PM
--- NOTE | 2017-03-16 14:38 | EMERGENCY ROOM VISIT NOTE ---
ED Visit Note First contact with patient: 14:11 CHIEF COMPLAINT: Finger laceration HISTORY OF PRESENT ILLNESS: This 27-year-old male patient presents to the emergency department immediately after cutting the right index when he pinched his finger in between a pry bar and a car. The bleeding has stopped. Denies weakness or numbness of the finger. The patient has full range of motion of the fingers. The patient rates the pain as an animal and 2/10. The patient denies any other injuries. The patient's tetanus shot is up to date. REVIEW OF SYSTEMS: A 6 system review of systems was completed with positives and pertinent negatives listed in the HPI. ALLERGIES: NKDA MEDICATIONS: Personally reviewed with the patient. Please see the medical reconciliation. PMH: Hepatitis B SOCIAL HISTORY: Smokes 1 cigarette per day. Occasionally drink alcohol. He is a student. PHYSICAL EXAM: Vital Signs: Reviewed Nurse's notes, vital signs stable. GENERAL : 27-year-old male, in no acute distress, well developed, well nourished. SKIN : There is a 2 cm long laceration on the distal aspect of the right index finger through the nail . The edges gape apart with traction. There is no foreign material in the wound and it looks clean. There is mild bleeding. No deep structures such as tendons, bones, or significant blood vessels are seen in the base of the wound. Extension and flexion of the finger is full and strong. Full range of motion of the wrist and other fingers. Capillary refill less than 2 seconds. Normal sensation to light and sharp touch. EMERGENCY DEPARTMENT COURSE: I examined the patient. Imaging was performed and reviewed Patient Name: OLI RUVALCABA Unit Number: [id number] Dictated: 03/16/171424 Transcribed: 03/16/171424 MS Printed Date/Time: [~ rep prt dt]/[~ rep prt tm] [~ rep ct labl] - [~ rep ct ivnm] [facility] [place] [address] Dictated: 03/16/171424 Transcribed: 03/16/171424 MS Printed Date/Time: [~ rep prt dt]/[~ rep prt tm] [~ rep ct labl] - [~ rep ct ivnm] RIGHT FINGER(S) MIN 2 VIEWS ROUTINE CLINICAL HISTORY: r/o fx Right trauma COMPARISON: None. DISCUSSION: Fracture tuft distal phalanx right second finger. Soft tissue disruption locally. No evidence of dislocation. All remaining osseous structures are unremarkable. IMPRESSION: Fracture tuft distal phalanx. Localized soft tissue disruption. No evidence dislocation. The above report was generated using voice recognition software. It may contain grammatical, syntax or spelling errors. Electronically signed by: Han Cee M.D. 03/16/2017 2:26 PM Dictated Date/Time: 03/16/2017 2:25 PM The status of this report is Signed. Draft = Not yet reviewed or approved by Radiologist. Signed = Reviewed and approved by Radiologist. <AttendingPhy></AttendingPhy> <FamilyPhy>No Doctor, Assigned</FamilyPhy> < PrimaryPhy>No Doctor, Assigned</PrimaryPhy> <UnitNumber>[id number]</UnitNumber> <VisitNumber>[id number]</VisitNumber> <PatientName>OLI RUVALCABA</PatientName> < DateOfBirth>1990</DateOfBirth> <Location>[facility]</Location> <ServiceDate>06/20</ServiceDate> <MNE>ESINDI</MNE> <OrderingPhy>ED, PROTOCOL</OrderingPhy> < OrderingPhyMNE>f rep ord dr esquivel</OrderingPhyMNE> <DictatingPhyMNE>f rep dict dr esquivel</DictatingPhyMNE> <CCListMNE>f rep ct alvin</CCListMNE> <AdmittingPhyMNE>f pt admit dr esquivel</AdmittingPhyMNE> <AttendingPhyMNE>f pt attend dr esquivel</ AttendingPhyMNE> <ConsultingPhyMNE>f pt consult dr esquivel</ConsultingPhyMNE> <FamilyPhyMNE>f pt fam dr esquivel</FamilyPhyMNE> <OtherPhyMNE>f pt other dr esquivel</OtherPhyMNE> < PrimaryPhyMNE>f pt prim care dr esquivel</PrimaryPhyMNE> <ReferringPhyMNE>f pt referring dr esquivel</ReferringPhyMNE> The patient was seen and examined Imaging was done as above The wound was repaired Verbal consent was obtained to perform the procedure. Using sterile technique the wound was cleansed with Betadine. 5 ml of 1% buffered lidocaine and Marcaine was used to perform a digital block to anesthetize the patient. The area was sterilely draped. Once the patient was anesthetized, the wound was copiously irrigated under pressure with sterile saline. The wound was explored and there were no deep structures injured. The laceration was repaired using 7 simple interrupted 5-0 nylon sutures. The patient tolerated the procedure well. Hemostasis was achieved. The area was cleaned with sterile saline and dressed with bacitracin ointment and bandage. He was given 1 dose of Keflex 500 mg po A splint was placed The patient was discharged home in good condition. DIAGNOSIS: Open fracture of the right index finger DISCHARGE INSTRUCTIONS & TREATMENT: Please take entire course of antibiotics. Please follow-up with orthopedics. Keep the splint in place until seen by orthopedics. Keep wound clean. It is okay to gently wash the area with soapy water. Do not submerse it in water for long periods of time such as swimming, going in hot tubs or taking baths until the sutures come out. Do not allow any crusting or dried blood to accumulate on sutures. If this occurs, use a 1:1 solution of hydrogen peroxide/water on a Q-tip to clean the wound. Use an antibiotic ointment for 3-4 days, then let wound dry. Suture removal in 14 days. Return sooner for any signs of infection (increasing redness, swelling, drainage). Ice and elevate for swelling and pain. Tylenol 1000 mg every 8 hours for pain
[2017-03-16] MEDS ORDERED: CEPH500C2 PO (16:08)
[2017-03-16] MEDS ORDERED: CEPHALEXIN MONOHYDRATE 250 MG CAP PO ONE (16:15)
[2017-03-16 16:33] VITALS: BP 139/88; PULSE 85; O2SAT 99
== END 2017-03-16 16:47 | disposition home or self-care (01) ==
LOC: C.EDB 13:43 → C.EDD 16:47
DX: S61.210A Laceration without foreign body of right index finger without damage to nail, initial encounter (principal); W23.1XXA Caught, crushed, jammed, or pinched between stationary objects, initial encounter; F17.200 Nicotine dependence, unspecified, uncomplicated

== ENCOUNTER 2017-03-27 13:38 | Emergency (ER) | payer OTHER ==
[~2017-03-27] VITALS: Ht 172.7 cm; Wt 91.1 kg
[~2017-03-27 13:38] MED LIST changes: +CEPH500C2 PO
[2017-03-27 13:40] VITALS: TEMP 36.9; Ht 172.7 cm; Wt 91.1 kg
[2017-03-27] MEDS ORDERED: SULFAMETHOXAZOLE/TRIMETHOPRIM DS 800/160MG TAB PO ONE (14:00)
[2017-03-27] MEDS ORDERED: CEPHALEXIN MONOHYDRATE 250 MG CAP PO ONE (14:00)
--- NOTE | 2017-03-27 14:18 | DIAGNOSTIC IMAGING REPORT ---
RIGHT SECOND FINGER 3 VIEWS HISTORY: R 2nd finger lac to weeks ago ?now infected/osteo COMPARISON: None. FINDINGS: Mild soft tissue swelling and a small laceration at the distal tip of the index finger. There is a small slightly distracted fracture at the distal tuft of the index finger. No dislocation. No radiopaque foreign bodies. Soft tissues are unremarkable. No radiopaque foreign bodies. IMPRESSION: A small slightly distracted fracture at the distal tuft of the index finger. No underlying bony destruction at this time. Electronically signed by: Dat Patel M.D. 03/27/2017 2:17 PM Dictated Date/Time: 03/27/2017 2:16 PM
[2017-03-27] MEDS ORDERED: SULF800T23 PO (14:27)
[2017-03-27] MEDS ORDERED: CEPH500C PO (14:27)
--- NOTE | 2017-03-27 14:29 | EMERGENCY ROOM VISIT NOTE ---
History First contact with patient: 13:45 Chief Complaint: WOUND INFECTION Stated Complaint: RIGHT FINGER POSSIBLE INFECTION Nursing Triage Summary: "I cut off the tip of my right index finger about two weeks ago and now I think I have an infection. I feel I lost the feeling in my finger and now there is redness and drainage" per pt. History of Present Illness The patient is a 27 year old male who presents to the Emergency Room with complaints of a possible wound infection of the right second finger. The patient was here with a laceration 2 weeks ago he was diagnosed with an open fracture. He was put on prophylactic antibiotics. He was told to follow-up with orthopedics, whom he saw 4 days ago. They told him to keep the finger in a splint and they also wanted to keep the sutures in for at least 7 more days. The patient denies any fever or chills. He thinks that he may have seen some pus coming out in between the sutures. The tip of the finger is numb. He also is having difficulty bending the DIP joint. He denies any significant pain. Review of Systems 6 system review negative. Please see pertinent positives in the history of present illness section. Past Medical/Surgical History Medical Problems: (1) Bronchitis (2) Contusion of left knee (3) Depression (4) Hepatitis B carrier (5) Pneumonia (6) Polysubstance dependence including opioid type drug, episodic abuse (7) Suicide attempt Family History Patient reports no known family medical history. Social History Smoking Status: Current Every Day Smoker Alcohol Use: occasionally Drug Use: marijuana Marital Status: Housing Status: lives alone Occupation Status: employed Current/Historical Medications Scheduled Cephalexin Monohydrate (Keflex), 500 MG PO TID Cephalexin Monohydrate (Keflex), 500 MG PO TID Emtricitabine/Temofovir (Truvada 200/300MG), 1 TAB PO DAILY Fluoxetine (Prozac), 40 MG PO DAILY Lamotrigine (Lamictal), 100 MG PO HS Lamotrigine (Lamictal), 50 MG PO QAM Meloxicam (Mobic), 7.5 MG PO DAILY Prazosin Hcl (Prazosin), 1 MG PO HS Sulfa/Trimethoprim (Bactrim Ds 800MG/160MG), 1 TAB PO BID Physical Exam Vital Signs Date Time Temp Pulse Resp B/P (MAP) Pulse Ox O2 Delivery O2 Flow Rate FiO2 9/17 14:36 93 20 163/86 97 03/27/17 13:40 36.9 99 16 146/93 97 Room Air Physical Exam VITALS: Vitals are noted on the nurse's note and reviewed by myself. Vital signs stable. GENERAL: 27-year-old male, in no acute distress, nondiaphoretic, well-developed well-nourished. HEAD: Normocephalic atraumatic. MUSCULOSKELETAL: RIGHT HAND: Sutures in place to the distal aspect of the right second finger. No significant erythema or edema noted. There is discoloration at the end of the finger. Capillary refill is less than 2 seconds. Dull sensation to the end of the finger. The patient is unable to flex the finger at the DIP joint. No significant tenderness over the joint. Flexion of the PIP joint is intact. NEURO: Patient was alert and oriented to person place and time. Medical Decision & Procedures ER Provider Diagnostic Interpretation: RIGHT SECOND FINGER 3 VIEWS HISTORY: R 2nd finger lac to weeks ago ?now infected/osteo COMPARISON: None. FINDINGS: Mild soft tissue swelling and a small laceration at the distal tip of the index finger. There is a small slightly distracted fracture at the distal tuft of the index finger. No dislocation. No radiopaque foreign bodies. Soft tissues are unremarkable. No radiopaque foreign bodies. IMPRESSION: A small slightly distracted fracture at the distal tuft of the index finger. No underlying bony destruction at this time. Electronically signed by: Dat Patel M.D. 03/27/2017 2:17 PM Dictated Date/Time: 03/27/2017 2:16 PM The status of this report is Signed. Draft = Not yet reviewed or approved by Radiologist. Signed = Reviewed and approved by Radiologist. <AttendingPhy></AttendingPhy> <FamilyPhy>No Doctor, Assigned</FamilyPhy> < PrimaryPhy>No Doctor, Assigned</PrimaryPhy> <UnitNumber>[id number]</UnitNumber> <VisitNumber>[id number] Medications Administered Medications (Trade) Dose Ordered Sig/Brandee Route Start Time Stop Time Status Last Admin Dose Admin Trimethoprim/ Sulfamethoxazole (Septra Ds 800/ 160MG Tab) 1 tab NOW ONCE PO 03/27/17 14:00 03/27/17 14:01 DC 03/27/17 14:02 1 TAB Cephalexin Monohydrate (Keflex Cap) 500 mg NOW ONCE PO 03/27/17 14:00 03/27/17 14:01 DC 03/27/17 14:03 500 MG ED Course The patient was seen and examined 2 sutures were removed in the pad of the finger Imaging was performed and reviewed He was given a dose of Bactrim and Keflex Discharge instructions were reviewed, and he was discharged in good condition Medical Decision Differential diagnosis: Wound infection, healing laceration, osteomyelitis This patient is a 27-year-old male that presents to the emergency department with a possible infection of his right index finger after sustaining a laceration and open fracture 2 weeks ago. On exam, there are no significant signs of infection. There is no purulent material present. He was not able to flex the finger at the DIP joint. It is possible that he had a flexor tendon injury. The patient did follow-up with orthopedics following the laceration for the open fracture. He was given a course of antibiotics after the initial injury for prophylaxis. He was put back on antibiotics today, Keflex and Bactrim. He was instructed to continue to wear the splint given to him by orthopedics. I did pop out 2 sutures in case the wound was draining any fluid. According to orthopedics, they wanted to leave the sutures intact for a few more days. He was instructed to follow-up with orthopedics this week, and return to the emergency department with any worsening symptoms such as increased redness, swelling or fever. Medication Reconcilliation Current Medication List: was personally reviewed by me Blood Pressure Screening Patient's blood pressure: Elevated blood pressure Blood pressure disposition: Elevated BP felt to be situational Impression Primary Impression: Healing laceration Departure Information Dispostion Home / Self-Care Condition GOOD Prescriptions Sulfa/Trimethoprim (Bactrim Ds 800MG/160MG) Tab 1 TAB PO BID for 7 Days, #14 TAB Prov: Marilee Campbell PA-C 03/27/17 Cephalexin Monohydrate (Keflex) 500 Mg Cap 500 MG PO TID for 7 Days, #21 CAP Prov: Marilee Campbell PA-C 03/27/17 Referrals No Doctor, Assigned (PCP) Patient Instructions My [facility] Additional Instructions You were evaluated in the emergency department for the wound on your finger. 2 sutures were removed. The rest were left intact. Please take the entire course of both antibiotics. It is recommended that you eat yogurt daily with these antibiotics Continue to wear the splint as instructed by orthopedics Please follow-up with orthopedics next week for further evaluation Return to the emergency department if you have any of the following symptoms: -Fever -Worsening pain of the wound -Increased redness or swelling
[2017-03-27 14:36] VITALS: BP 163/86; PULSE 93; O2SAT 97
== END 2017-03-27 14:37 | disposition home or self-care (01) ==
LOC: C.EDB 13:39 → C.EDD 14:37
DX: S61.210A Laceration without foreign body of right index finger without damage to nail, initial encounter (principal); S62.630A Displaced fracture of distal phalanx of right index finger, initial encounter for closed fracture; X58.XXXA Exposure to other specified factors, initial encounter; B19.10 Unspecified viral hepatitis B without hepatic coma; F32.9 Major depressive disorder, single episode, unspecified; F17.200 Nicotine dependence, unspecified, uncomplicated; Z87.828 Personal history of other (healed) physical injury and trauma; Z79.899 Other long term (current) drug therapy

== ENCOUNTER 2017-11-28 12:12 | Emergency (ER) | payer OTHER ==
[~2017-11-28] VITALS: Ht 172.7 cm; Wt 99.5 kg
[~2017-11-28 12:12] MED LIST changes: -CEPH500C2 PO
[2017-11-28 12:19] VITALS: Ht 172.7 cm; Wt 99.5 kg
--- NOTE | 2017-11-28 13:12 | DIAGNOSTIC IMAGING REPORT ---
L FOOT MIN 3 VIEWS ROUTINE CLINICAL HISTORY: Left fifth metatarsal pain. Evaluate for fracture. COMPARISON: None FINDINGS: Tarsometatarsal joints are intact. No acute fracture within the left foot is identified. Joint spaces are preserved. There are no erosions. IMPRESSION: No acute fracture or dislocation within the left foot. Electronically signed by: Salvador Goodson M.D. 11/28/2017 1:11 PM Dictated Date/Time: 11/28/2017 1:10 PM
[2017-11-28 13:15] VITALS: BP 128/74; PULSE 76; TEMP 37; O2SAT 94
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
== END 2017-11-28 14:06 | disposition home or self-care (01) ==
LOC: C.EDB 12:12 → C.EDD 14:06
DX: S93.602A Unspecified sprain of left foot, initial encounter (principal); W10.9XXA Fall (on) (from) unspecified stairs and steps, initial encounter; F32.9 Major depressive disorder, single episode, unspecified; Z79.899 Other long term (current) drug therapy